=== PATIENT | male | born 2000 | race Two or more races ===

== ENCOUNTER 2022-03-27 14:20 | Emergency (ER) | payer MEDICAID, SELFPAY ==
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
[2022-03-27 14:33] VITALS: BP 126/90; PULSE 84; RESP 17; TEMP 36.9; O2SAT 98; BMI 17.3
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
[2022-03-27] MEDS: Acetaminophen 325 MG TABLET 975 MG PO (15:24)
[2022-03-27] MEDS: Ibuprofen 800 MG TABLET PO (15:24)
--- NOTE | 2022-03-27 16:30 | PC.NURSE ---
KNEE BRACE APPLIED TO RIGHT LEG PER PROVIDER. CRUTCHES AND CRUTCH TRAINING GIVEN. PROVIDER AWARE.
== END 2022-03-27 16:49 | disposition home or self-care (01) ==
PROVIDERS: Emergency Provider Emergency Medicine; PCP Pediatrics
DX: M25.461 Effusion, right knee (principal); M79.661 Pain in right lower leg; Z79.899 Other long term (current) drug therapy
CPT/HCPCS: 73564; 73590; 99283

== ENCOUNTER 2024-10-23 17:01 | Emergency (ER) | payer MEDICAID, SELFPAY ==
--- NOTE | ~2024-10-23 | XR_ITS ---
EXAMINATION: XR KNEE, LEFT CLINICAL INFORMATION: pain, injury COMPARISON: None available. TECHNIQUE: Four views of the left knee. FINDINGS: No fracture or joint effusion. Alignment is anatomic. Joint spaces are maintained. No abnormal soft tissue calcification. Moderate prepatellar soft tissue thickening/edema seen XR/XR knee LT 3V IMPRESSION: No acute osseous process. Prepatellar soft tissue thickening/edema. No joint effusion Electronically signed by: Michele Hill MD 10/23/2024 06:01 PM EST RP
[2024-10-23 17:11] VITALS: BP 118/64; PULSE 69; RESP 16; TEMP 37.4; O2SAT 99; BMI 18.3
--- NOTE | 2024-10-23 17:11 | ED.GENADULT ---
HPI - General Adult General Chief complaint: Extremity Problem Stated complaint: L knee injury Time Seen by Provider: 10/23/24 20:44 Source: patient Mode of arrival: ambulatory Limitations: no limitations History of Present Illness ED Provider: Mariana Rowan PA-C HPI narrative: Patient is a 24 year old assigned male at with no reported medical history presenting to the emergency department today with left knee pain. Patient states that he fell a few weeks ago and skinned his left knee. Patient states that the knee was doing OK but after swelling significantly it now hurts him much more. Patient denies any dizziness, lightheadedness, abdominal pain, nausea, vomiting, fever, chills, blurry vision, double vision, loss of vision, chest pain, difficulty breathing, shortness of breath, back pain, night sweats, pain with urination, increased urinary frequency, increased urinary urgency, blood in his urine or stool, syncope or a near syncopal episode, bowel incontinence, bladder incontinence, or any other complaints at this time. Location: left and lower extremity Relieving factors: none Exacerbating factors: none Associated symptoms: denies other symptoms Treatments prior to arrival: none Related Data Previous Rx's ?Medication ?Instructions ?Recorded cephalexin 500 mg capsule 500 mg PO Q6H 7 days #28 caps 10/24/24 doxycycline hyclate 100 mg tablet 100 mg PO BID 7 days #14 tabs 10/24/24 Allergies Allergy/AdvReac Type Severity Reaction Status Date / Time No Known Allergies Allergy Verified 10/23/24 17:12 Review of Systems Constitutional: Constitutional: Reports no additional constitutional complaints, Denies chills, Denies fever(s) and Denies night sweats Eyes: Eyes: Reports no additional eye complaints, Denies blurry vision, Denies change in vision, Denies diplopia, Denies eye discharge, Denies loss of vision and Denies eye pain ENT: Denies dizziness Cardiovascular: Cardiovascular: Reports no additional cardiovascular complaints, Denies chest pain, Denies lightheadedness, Denies Loss of Consciousness and Denies dyspnea Respiratory: Respiratory: Reports no additional respiratory complaints and Denies dyspnea Gastrointestinal: Gastrointestinal: Reports no additional gastrointestinal complaints, Denies abdominal pain, Denies melena, Denies hematochezia, Denies change in bowel habits and Denies change in stool character Genitourinary: Genitourinary: Reports no additional male genitourinary complaints, Denies hematuria, Denies oliguria, Denies difficulty urinating, Denies dysuria, Denies urinary frequency, Denies urinary hesitancy, Denies urinary incontinence and Denies urinary urgency Musculoskeletal: Musculoskeletal: Reports no additional musculoskeletal complaints, Denies numbness and Denies tingling Comments: left knee pain, left knee swelling Neurologic: Denies dizziness, Denies loss of vision, Denies numbness and Denies tingling Psychiatric: Psychiatric: Reports no additional psychiatric complaints Endocrine: Endocrine: Reports no additional endocrine complaints Hematologic/Lymphatic: Hematologic/Lymphatic: Reports no additional hematologic/lymphatic complaints Allergic/Immunologic: Allergic/Immunologic: Reports no additional allergic/immunologic complaints [facility] Past Medical History Attestation statement: The following information was validated with the patient. Source: old records reviewed and nursing notes reviewed Medical History No known health problems Social History Social History Advance Directives: No Advance Directives Information Provided: No Physical Exam ED Vital Signs: Vital Signs - 24 hr 10/23/24 17:11 10/23/24 19:47 Temperature 99.4 F Pulse Rate 69 63 Respiratory Rate 16 15 Blood Pressure 118/64 108/57 L Pulse Oximetry 99 100 Oxygen Delivery Method Room Air Room Air BMI result Body Mass Index 18.3 Const General: cooperative, no acute distress, alert and awake Nutritional Appearance: well nourished Orientation/consciousness: patient oriented x3 Limitations: no limitations [facility] Head: Yes normal to inspection and Yes atraumatic Ears: hearing grossly normal bilaterally and external ears normal General nose exam: Normal external nose present, no nasal discharge noted and no epistaxis Face and sinus: Yes normal facial exam, No abrasion and No laceration Mouth: Normal oral and palatal mucosa present, no drooling and no muffled voice Eyes General: appearance normal, both eyes and all related structures Periorbital: periorbital findings normal Eyelids: Yes eyelids normal Conjunctivae: conjunctivae normal Pupils: Equal, round and reactive pupils present EOM: EOMs intact bilaterally Neck Neck: Yes normal visual inspection, Yes full ROM and Yes no lymphadenopathy Chest Chest palpation & inspection: normal inspection of the chest Resp Effort & Inspection: normal respiratory effort and able to speak in complete sentences GI Inspection: Yes normal to inspection Neuro General: patient oriented x3 and moves all extremities Cranial nerves: Yes Equal, round and reactive pupils present Cognition (Neuro): normal cognition Extrem Other: scab present at the 2 o'clock position of the left knee with minimal surrounding erythema patient has full range of motion of the left knee General: Yes full ROM and Yes capillary refill normal Psych Appearance: grossly normal Mental Status: mental status grossly normal Affect: normal affect Attitude: cooperative Thought process: Normal thought process present Thought content: Normal thought content present Insight: Good insight present (Psych) Course Course Course Narrative: RME performed by Mariana Rowan PA-C. Patient is a 24 year old assigned male at presenting to the emergency department with left knee pain and swelling. Patient states that he fell and injured his left knee awhile ago but last night he went to sleep and woke up this morning with left knee swelling. Detailed physical exam and review of systems are deferred to the primary education professor. Imaging ordered. Patient placed back in the waiting room pending room availability and results. Upon re-eval, patient was able to show his left knee which is red, swollen, and has a scab. Labs ordered. Medical Decision Making Medical Decision Making MDM Narrative: Patient is a 24 year old assigned male at with no reported medical history presenting to the emergency department today with left knee pain. Patient's limited physical exam performed in triage was as noted in the physical exam portion of this note. Patient's exam was consistent with left knee cellulitis and I do not suspect a septic joint at this time. Patient's blood work showed an elevated WBC count of 16.0 but normal ESR and CRP. Patient's left knee x-ray showed no acute process. Patient left the department without completing treatment. Patient left the department before myself or any of the other emergency department clinicians could explain to or review with the patient; physical exam findings, test results, need or lack there of for additional testing, need or lack there of for a procedure to be performed, need or lack there of for hospital admission / transfer, need or lack there of for prescription medication, treatment options, or a treatment plan. Given my concern of the patient having cellulitis, I called the patient on 10/24/2024 and recommended he product picker the antibiotics I sent in to his pharmacy. Patient verbalized understanding and assured me would product picker and start the prescribed antibiotics. Differential Diagnosis Differential Diagnoses: The differential diagnosis associated with the presentation includes Left knee cellulitis Left knee pain Left knee contusion Left patellar fx Left tibial fx Admission/Observation Consideration of admission/observation: Escalation of care including admission/observation considered Patient would have been admitted to the hospital had he completed his work up and it had any findings where hospital admission was appropriate, his clinical presentation warranted hospital admission, had myself or any other emergency emergency department nurse had the ability to discuss need or lack there of for hospital admission, and the patient hadn't left the department without completing treatment. Lab Data [facility] Lab Attestation statement: I reviewed the patient's lab results. My interpretation of these results are in the [facility] Rationale portion of this note. 10/23/24 18:48 10/23/24 18:48 Labs: Lab Results 10/23/24 Range/Units 18:48 WBC 16.0 H (4.8-10.8) X10*3/uL RBC 5.18 (4.60-5.80) X10*6/uL Hgb 14.8 (14.0-18.0) g/dl Hct 44.4 (42.0-52.0) % MCV 85.7 (80.0-98.0) fL MCH 28.6 (27.0-33.0) pg MCHC 33.3 (31.0-36.0) g/dl RDW 13.3 (11.0-16.0) % Plt Count 271 (160-400) X10*3/uL MPV 10.1 (9.4-12.4) fL Immature Gran % (Auto) 0.6 H (0.0-0.4) % Neut % (Auto) 71.5 (45-73) % Lymph % (Auto) 17.0 L (20-40) % [place] % (Auto) 9.4 (2-11) % Eos % (Auto) 1.1 (0-4) % Baso % (Auto) 0.4 (0-2) % Lymph # (Auto) 2.7 (1.2-4.9) X10*3/uL [place] # (Auto) 1.5 H (0.1-1.2) X10*3/uL Eos # (Auto) 0.2 (0.0-0.4) X10*3/uL Baso # (Auto) 0.1 (0.0-0.2) X10*3/uL Abs Immat Gran (auto) 0.09 H (0.00-0.03) X10*3/uL Absolute Neuts (auto) 11.5 H (2.0-8.3) x10*3/uL Absolute Nucleated RBC 0.000 (0.0-0.012) X10*3/uL Nucleated RBC % (auto) 0.0 (0.0-0.2) /100WBC Smear Tech's Comments VERIFIED ESR 1 (0-15) MM/HR Sodium 140 (135-145) mmol/L Potassium 3.9 (3.3-5.1) mmol/L Chloride 104 (96-108) mmol/L Carbon Dioxide 29 (22-29) mmol/L Anion Gap 11 L (12-20) BUN 15 (9-16) mg/dL Creatinine 1.06 (0.5-1.4) mg/dL Estim Creat Clear Calc 94.6 Estimated GFR > 60 Random Glucose 69 (60-115) mg/dL Calcium 9.7 (8.4-10.2) mg/dL Magnesium 2.1 (1.6-2.6) mg/dL Total Bilirubin 0.7 (0.0-1.0) mg/dL AST 18 (5-37) U/L ALT 16 (0-40) U/L Alkaline Phosphatase 83 (39-117) U/L C-Reactive Protein 0.39 (< or = 0.50) mg/dL Total Protein 7.4 (6.5-8.0) g/dL Albumin 4.4 (3.5-5.0) g/dL Independent Interpretation I performed an independent interpretation of an: Plain X-Ray Interpretation: My interpretation is in agreement with the radiologist's impression of this imaging study. EXAMINATION: XR KNEE, LEFT CLINICAL INFORMATION: pain, injury COMPARISON: None available. TECHNIQUE: Four views of the left knee. FINDINGS: No fracture or joint effusion. Alignment is anatomic. Joint spaces are maintained. No abnormal soft tissue calcification. Moderate prepatellar soft tissue thickening/edema seen XR/XR knee LT 3V IMPRESSION: No acute osseous process. Prepatellar soft tissue thickening/edema. No joint effusion Electronically signed by: Michele Hill MD 10/23/2024 06:01 PM [facility] Dictated By: Michele Hill MD Signed By: Electronically signed by Michele Hill MD 10/23/24 1801 Radiology Impression Discussion of test interpretation with radiology: I have reviewed the radiologist's reading. Prescription Management I considered prescription management with: Antibiotic (patient prescribed an antibiotic for left knee cellulitis) Discharge Plan Discharge Clinical Impression: Cellulitis Patient Disposition: Left W/O Completing Treatment Prescriptions: New cephalexin 500 mg capsule 500 mg PO Q6H 7 Days Qty: 28 0RF doxycycline hyclate 100 mg tablet 100 mg PO BID 7 Days Qty: 14 0RF Interventions: LWBS Worksheet Last Done: 10/23/24 21:00 Discharge Date/Time: 10/23/24 21:00
[2024-10-23 18:54] LABS: Basophils Absolute Auto 0.1 X10*3/uL (0.0-0.2); Basophils Percent Auto 0.4 % (0-2); Eosinophils Absolute Auto 0.2 X10*3/uL (0.0-0.4); Eosinophils Percent Auto 1.1 % (0-4); Hematocrit 44.4 % (42.0-52.0); Hemoglobin 14.8 g/dl (14.0-18.0); Imm Gran Abs Auto 0.09 X10*3/uL (0.00-0.03); Imm Gran Pct Auto 0.6 % (0.0-0.4); Lymphocytes Absolute Auto 2.7 X10*3/uL (1.2-4.9); MANUAL DIFF FLAG SCAN; Mean Corpuscular HGB Conc 33.3 g/dl (31.0-36.0); Mean Corpuscular Hemoglobin 28.6 pg (27.0-33.0); Mean Corpuscular Volume 85.7 fL (80.0-98.0); Mean Platelet Volume 10.1 fL (9.4-12.4); Monocytes Absolute Auto 1.5 X10*3/uL (0.1-1.2); Monocytes Percent Auto 9.4 % (2-11); Neutrophils Absolute Auto 11.5 x10*3/uL (2.0-8.3); Neutrophils Percent Auto 71.5 % (45-73); Platelet Count 271 X10*3/uL (160-400); Red Blood Count 5.18 X10*6/uL (4.60-5.80); Red Cell Distribution Width 13.3 % (11.0-16.0); SCAN SMEAR FLAG 1
[2024-10-23 19:09] LABS: Alanine Aminotransferase 16 U/L (0-40); Albumin Level 4.4 g/dL (3.5-5.0); Alkaline Phosphatase 83 U/L (39-117); Anion Gap 11 (12-20); Aspartate Amino Transferase 18 U/L (5-37); Bilirubin Total 0.7 mg/dL (0.0-1.0); Blood Urea Nitrogen 15 mg/dL (9-16); C Reactive Protein 0.39 mg/dL (< or = 0.50); Calcium 9.7 mg/dL (8.4-10.2); Carbon Dioxide 29 mmol/L (22-29); Chloride 104 mmol/L (96-108); Creatinine Clr Calc Pharmacy 94.6; Estimated Glomerular Filt Rate > 60; Glucose Random 69 mg/dL (60-115); Magnesium 2.1 mg/dL (1.6-2.6); Potassium 3.9 mmol/L (3.3-5.1); Sodium 140 mmol/L (135-145); Total Protein 7.4 g/dL (6.5-8.0)
[2024-10-23 19:14] LABS: SLIDE REVIEW VERIFIED
[2024-10-23 19:35] LABS: Erythrocyte Sedimentation Rate 1 MM/HR (0-15)
[2024-10-23 19:47] VITALS: BP 108/57; PULSE 63; RESP 15; O2SAT 100
== END 2024-10-23 21:00 | disposition left against medical advice (07) ==
PROVIDERS: Physician Assistant Medical; Emergency Provider Internal Medicine
DX: L03.116 Cellulitis of left lower limb (principal); M25.562 Pain in left knee; Z79.899 Other long term (current) drug therapy
CPT/HCPCS: 36415; 73562; 80053; 83735; 85025; 85652; 86140; 99283